=== PATIENT | male | born 1975 | race Caucasian/White ===

== ENCOUNTER → 2018-08-12 16:41 | Outpatient (CLI) | payer OTHER, SELFPAY ==
--- NOTE | 2018-08-12 | DI.MRI.S_ITS ---
PROCEDURE: MR KNEE LT WO CON INDICATIONS: Continued medial left knee pain with increase in pain with extension post ACL repair March 2018 TECHNIQUE: Noncontrast sagittal PD fast spin echo and T2 fast spin echo with fat saturation, sagittal 3-D FLASH with fat saturation; coronal T1 spin echo and PD fast spin echo with fat saturation, and axial PD fast spin echo with fat saturation through the knee. COMPARISON: [facility], , KNEE 1 OR 2VW (LT), 04/21/2014, 0:00. FINDINGS: Image quality: Excellent. Menisci: Subtle intrasubstance signal change involving posterior horn lateral meniscus image 25 series 8, image 24 series 10 which may represent myxoid degeneration given no definite extension to an articular surface. Undersurface tear of the posterior horn of the medial meniscus extending to the superior articular surface Cruciate ligaments: Status post repair of the anterior cruciate ligament. The graft fibers are not well-seen. There is prominent T2 hyperintensity and enlargement present within the intra-osseous portions, suggesting mucoid degeneration. Differential includes age indeterminate partial or complete rupture of the graft Medial structures: The medial collateral ligament appears intact. The posterior oblique ligament, semimembranosus tendon insertions, oblique popliteal ligament, and meniscocapsular junction appear intact. Visualized portions of the pes anserinus tendons appear normal. No abnormal bursal fluid. Lateral structures: The lateral collateral ligament, long and short heads of the biceps femoris tendon appear intact. The popliteus tendon appears normal; the popliteofibular ligament appears intact. The posterosuperior and anteroinferior popliteomeniscal fascicles appear intact. The arcuate and fabellofibular ligaments appear intact, on either side of the lateral inferior geniculate artery. Iliotibial band appears normal. Anterior structures: The quadriceps and patellar tendons appear intact. Patellar alignment is normal. No femoral trochlear dysplasia or ventral trochlear prominence. No edema in the infrapatellar fat pad. Bones and cartilage: No bone marrow contusions or fractures. The cartilage of the medial and lateral femorotibial compartments, as well as the patellofemoral compartment, appears normal in thickness. Joint space: There is physiologic knee joint fluid. No Solano's cyst. IMPRESSION: Status post ACL reconstruction however the graft fibers are not well-visualized and there is marked T2 hyperintensity/thickening in particular involving the intraosseous segments. This suggests severe mucoid degeneration versus age-indeterminate high grade partial versus complete rupture. Please correlate with exam findings. Medial meniscal tear involving the posterior horn. 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 Dictated by: Alonzo Rodriguez M.D. on 08/13/2018 at 8:41 Approved by: Alonzo Rodriguez M.D. on 08/13/2018 at 8:50
== END ==
PROVIDERS: Visit Provider Orthopaedic Surgery
DX: M25.562 Pain in left knee (principal); S83.242A Other tear of medial meniscus, current injury, left knee, initial encounter; M17.12 Unilateral primary osteoarthritis, left knee
CPT/HCPCS: 73721

== ENCOUNTER → 2019-09-08 09:13 | Outpatient (CLI) | payer OTHER, SELFPAY ==
--- NOTE | 2019-09-08 09:44 | DI.CT.S_ITS ---
PROCEDURE: CT LE LT W CON INDICATIONS: Other specified complication of internal orthopedi TECHNIQUE: Noncontrast 1-1.5 mm axial sections acquired from the mid-patella to the proximal tibia, with coronal and sagittal reformats. COMPARISON: [facility]ed [facility], MR, MR KNEE LEFT WITHOUT CONTRAST, 05/07/2019, 11:10. FINDINGS: Image quality: Diagnostic Bones: Patient is status post prior anterior cruciate ligament reconstruction with post surgical changes seen in lateral femoral condyle and medial portion of proximal tibia. There is no fracture or dislocation. No suspicious intraosseous lesion. 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 Soft tissues: Alignment of left knee is anatomic and is not significantly changed from previous study. No gross full-thickness ACL rupture is seen. PCL is intact. The distal quadriceps tendon and patella tendon are grossly intact. IMPRESSION: 1. Prior ACL reconstruction with anatomic alignment of left knee. No gross full-thickness ACL graft rupture. PCL is intact. 2. 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 No fracture or dislocation. No suspicious intraosseous lesion. 3. No significant joint effusion. Distal quadriceps tendon and patellar tendon are grossly intact. Dictated by: Joon Michael M.D. on 09/08/2019 at 10:35 Approved by: Joon Michael M.D. on 09/08/2019 at 10:41
== END ==
DX: T84.89XA Other specified complication of internal orthopedic prosthetic devices, implants and grafts, initial encounter (principal); M17.12 Unilateral primary osteoarthritis, left knee
CPT/HCPCS: 73700

== ENCOUNTER → 2020-05-14 07:07 | Outpatient (CLI) | payer OTHER, SELFPAY ==
--- NOTE | 2020-05-14 07:16 | DI.CT.S_ITS ---
PROCEDURE: CT LE LT W CON INDICATIONS: Other specified complication of internal orthopedi TECHNIQUE: Noncontrast 1-1.5 mm axial sections acquired from the mid-patella to the proximal tibia, with coronal and sagittal reformats. COMPARISON: [facility], MR, MR KNEE LEFT WITHOUT CONTRAST, 05/07/2019, 11:10. [facility], CR, XR KNEE 1 OR 2 VIEWS LEFT, 04/30/2019, 13:57. [facility], CR, XR KNEE 1 OR 2 VIEWS LEFT, 02/27/2019, 14:57. [facility], CT, CT LE LT WO CON, 09/08/2019, 9:18. FINDINGS: Image quality: Excellent. Bones: No fracture. Since the prior CT dated 09/08/19. The ACL graft is less conspicuous and not well visualized. There is bony incorporation of the tibial interference screw. There is also pronounced increased ossification seen within the femoral tunnel, potentially reflecting osseous incorporation however cannot exclude dystrophic or heterogeneous ossification related to graft injury. Chronic subchondral cystic changes and degenerative sclerosis in particular involving the lateral compartment. Alignment is unchanged. Scattered degenerative subchondral sclerosis and spurring. Mild narrowing of the medial and lateral joint spaces. ACL reconstruction hardware appears intact and unchanged alignment. Soft tissues: No pathologic joint effusion. The quadriceps and patellar tendons appear grossly intact. The muscles and vessels are grossly unremarkable. IMPRESSION: Postsurgical changes related to ACL reconstruction. Hardware appears intact and no change in alignment. Of note, there is poor visualization of the ACL graft by CT. If there is clinical concern for graft injury or rupture consider further evaluation with MRI. Interval osseous changes within the femoral and tibial tunnels as above. Dictated by: Alonzo Rodriguez M.D. on 05/14/2020 at 9:01 Approved by: Alonzo Rodriguez M.D. on 05/14/2020 at 9:13
== END ==
PROVIDERS: PCP Orthopaedic Surgery; Referring Provider Orthopaedic Surgery; Visit Provider Orthopaedic Surgery
DX: T84.89XD Other specified complication of internal orthopedic prosthetic devices, implants and grafts, subsequent encounter (principal)
CPT/HCPCS: 73700